=== PATIENT | male | born 2000 | race Two or more races ===

== ENCOUNTER 2020-09-28 19:08 | Emergency (ER) | payer MEDICAID ==
[~2020-09-28] VITALS: Ht 170.2 cm; Wt 56.8 kg
[2020-09-28 19:14] VITALS: BP 117/81
[2020-09-28] MEDS ORDERED: VALA100031 PO ×2 (22:08→22:14)
== END 2020-09-28 22:22 | disposition home or self-care (01) ==
LOC: ER 19:10
DX: A60.01 Herpesviral infection of penis (principal)
CPT/HCPCS: 36415; 86592; 99283